=== PATIENT | female | born 1970 | race Asian ===

== ENCOUNTER 2019-04-06 08:40 | Inpatient (IN) | payer OTHER ==
[~2019-04-06] VITALS: Ht 154.9 cm; Wt 58.1 kg
--- NOTE | 2019-04-06 10:10 | NUR ---
Received patient direct admit ambulatory from home. Respiration even and unlabored without SOB.
[2019-04-06 10:31] VITALS: BP 116/83
[2019-04-06 11:02] VITALS: BP 116/83
[2019-04-06 12:23] VITALS: BP 116/83
[2019-04-06] MEDS ORDERED: PAMELOR25 MG PO (13:11)
[2019-04-06] MEDS ORDERED: LIPITOR20 MG PO (13:11)
[2019-04-06 13:54] LABS: BASOPHILS # (AUTO) 0.1 (0.0-0.1); EOSINOPHILS % 0.6 % (0.0-6.0); HEMATOCRIT 39.6 % (34.2-44.1); HEMOGLOBIN 12.6 g/dL (12.0-16.0); LYMPHOCYTES # (AUTO) 1.2 (1.0-3.2); LYMPHOCYTES % 19.2 % (18.0-39.1); MEAN CORPUSCULAR HEMOGLOBIN 29.9 pg (28-32); MEAN CORPUSCULAR HGB CONC 31.8 g/dL (31-35); MEAN CORPUSCULAR VOLUME 93.8 fL (81-99); MONOCYTES # (AUTO) 0.4 (0.2-0.8); MONOCYTES % 5.9 % (4.4-11.3); NEUTROPHILS # (AUTO) 4.6 (2.1-6.9); PLATELET COUNT 189 x10e3/uL (140-360); RED BLOOD COUNT 4.22 x10e6/uL (3.6-5.1); RED CELL DISTRIBUTION WIDTH 14.6 % (11.7-14.4)
[2019-04-06 14:15] LABS: ALANINE AMINOTRANSFERASE 43 IU/L (0-55); ALBUMIN 4.1 g/dL (3.5-5.0); ALBUMIN/GLOBULIN RATIO 1.4 (0.8-2.0); ALKALINE PHOSPHATASE 78 IU/L (40-150); BLOOD UREA NITROGEN 13 mg/dL (7-26); BUN/CREATININE RATIO 16 (6-25); CARBON DIOXIDE 29 mmol/L (22-29); CHLORIDE 104 mmol/L (98-107); CREATININE, SERUM 0.82 mg/dL (0.57-1.11); EST GLOMERULAR FILTRATION RATE > 60 ML/MIN (60-); GLUCOSE 85 mg/dL (74-118); SODIUM 142 mmol/L (136-145)
[2019-04-06 15:54] VITALS: BP 111/78
[2019-04-06] MEDS: SODIUM CHLORIDE 0.9% 1000ML 1,000 ML IV SCH (17:50)
[2019-04-06] MEDS: METHYLPREDNISOLONE SOD SUCC 125 MG/2ML VIAL IV SCH (18:13)
[2019-04-06] MEDS: PROMETHAZINE 25MG/ NS 50ML (IV) IV SCH (18:13)
[2019-04-06] MEDS: VALPROATE SOD INJ 500 MG in SODIUM CHLORIDE 0.9% 100 ML 100 ML IV SCH (18:53)
--- NOTE | 2019-04-06 19:06 | NUR ---
Report given to material handler 2nd shift. Respiration even and unlabored without SOB. Call light in reach.
--- NOTE | 2019-04-06 19:25 | NUR ---
Patient received sitting up in bed. AAO x 4. at bedside. Patient had no complaints of headache or pain. Respirations even and non-labored. IVF infusing at 125 cc/hr. Fall precautions implemented. Patient instructed to call for assistance when needed. Call light within reach.
[2019-04-06 20:00] VITALS: BP 130/79
[2019-04-06 21:00] VITALS: BP 130/79
[2019-04-06] MEDS: NORTRIPTYLINE HCL 25 MG CAP PO SCH (21:13)
[2019-04-06] MEDS: ATORVASTATIN 20 MG TAB PO SCH (21:13)
[2019-04-07] VITALS (8 sets, daily range): BP systolic 99–110; BP diastolic 56–69
[2019-04-07] MEDS: VALPROATE SOD INJ 500 MG in SODIUM CHLORIDE 0.9% 100 ML 100 ML IV SCH ×2
[2019-04-07] MEDS: METHYLPREDNISOLONE SOD SUCC 125 MG/2ML VIAL IV SCH
[2019-04-07] MEDS: PROMETHAZINE 25MG/ NS 50ML (IV) IV SCH (01:00)
[2019-04-07] MEDS: SODIUM CHLORIDE 0.9% 1000ML 1,000 ML IV SCH ×4 (04:57→20:36)
--- NOTE | 2019-04-07 07:00 | NUR ---
Patient resting comfortably. Walking rounds done. Shift report given to oncoming nurse.
[2019-04-07] MEDS: KETOROLAC TROMETHAMINE 30 MG/ML VIAL IV SCH ×2 (10:45→16:21)
[2019-04-07] MEDS: METOCLOPRAMIDE HCL 10 MG/2ML VIAL IV SCH ×2 (10:45→16:20)
--- NOTE | 2019-04-07 19:40 | NUR ---
Patient received lying in bed. AAO x 3. No acute distress noted. Bed locked and in lowest position. Bed rails up x 2. Call light within reach.
[2019-04-07] MEDS: NORTRIPTYLINE HCL 25 MG CAP PO SCH (20:36)
[2019-04-07] MEDS: ATORVASTATIN 20 MG TAB PO SCH (20:36)
[2019-04-08] VITALS (9 sets, daily range): BP systolic 103–130; BP diastolic 61–73
[2019-04-08] MEDS: DIHYDROERGOTAMINE MESYLATE 1 MG/ML AMP IV SCH ×2 (11:35→17:45)
[2019-04-08] MEDS: SODIUM CHLORIDE 0.9% 1000ML 1,000 ML IV SCH (14:00)
[2019-04-08] MEDS: ONDANSETRON HCL INJ 2MG/ML 2ML 2 MG/ML VIAL IV PRN (17:24)
[2019-04-08] MEDS: NORTRIPTYLINE HCL 25 MG CAP PO SCH (21:30)
[2019-04-08] MEDS: ATORVASTATIN 20 MG TAB PO SCH (21:30)
[2019-04-09] MEDS: SODIUM CHLORIDE 0.9% 1000ML 1,000 ML IV SCH ×2 (01:00→09:50)
[2019-04-09 04:00] VITALS: BP 129/73
[2019-04-09 07:40] VITALS: BP 134/81
--- NOTE | 2019-04-09 07:40 | NUR ---
PATIENT IN BED WITH HEAD OF BED ELEVATED WATCHING TV, NO DISTRESS NOTED. IV FLUID INFUSING ORDERED. BED IN LOWER POSITION, CALL LIGHT AT REACH.
[2019-04-09 08:20] VITALS: BP 134/81
[2019-04-09 11:26] VITALS: BP 121/73
--- NOTE | 2019-04-09 12:48 | NUR ---
PATIENT ASSISTED TO THE RESTROOM AND BACK TO CHAIR. ALL PERSONAL ITEMS CLOSE TO PATIENT. CALL LIGHT AT REACH.
[2019-04-09] MEDS ORDERED: SUMATRIPTAN SUCCINATE 25 MG TAB PO ONE (13:30)
--- NOTE | 2019-04-09 15:30 | NUR ---
PATIENT C/O HEADACHE. MD NOTIFIED, NEW ORDER RECEIVED AND IMPLEMENTED. PATIENT STATED THAT SHE IS FEELING BETTER. IN BED RESTING WITH NO RESPIRATORY DISTRESS.
[2019-04-09 16:21] VITALS: BP 138/86
[2019-04-09] MEDS: ONDANSETRON HCL INJ 2MG/ML 2ML 2 MG/ML VIAL IV PRN (17:01)
[2019-04-09] MEDS ORDERED: NORTRIPTYLINE H50 MG PO (18:43)
--- NOTE | 2019-04-09 19:21 | NUR ---
PATIENT DISCHARGED HOME. DISCHARGE INSTRUCTIONS, PRESCRIPTIONS, AND FOLLOW UP GIVEN TO PATIENT, SHE VERBALIZED UNDERSTANDING. IV TO RIGHT REMOVED WITH TIP INTACT. ALL PERSONAL ITEMS TAKEN WITH PATIENT. LEFT UNIT PER WHEEL CHAIR TO FRONT LOBBY IN STABLE CONDITION.
== END 2019-04-09 19:20 | disposition home or self-care (01) | DRG 103 ==
LOC: MED/SURG3 10:00 → OBSVTOIN 04-08 14:09
PROVIDERS: ADMIT Internal Medicine; ATTEND Internal Medicine
DX: G43.919 Migraine, unspecified, intractable, without status migrainosus (principal); I10 Essential (primary) hypertension; E78.5 Hyperlipidemia, unspecified
CPT/HCPCS: 36415; 80053; 82948; 85025; G0378; J1885; J2405; J2550; J2765; J2930; J7030